=== PATIENT | female | born 1985 | race Two or more races ===

== ENCOUNTER 2019-06-15 07:48 | Emergency (ER) | payer SELFPAY ==
[~2019-06-15] VITALS: Ht 157.5 cm; Wt 68.0 kg
[2019-06-15 08:12] VITALS: BP 130/63
--- NOTE | 2019-06-15 09:25 | RAD ---
EXAM: Head CT without contrast. HISTORY: Left-sided numbness. TECHNIQUE: Computed tomographic images of the head were obtained without contrast. *One or more of the following individualized dose reduction techniques were utilized for this examination: 1. Automated exposure control. 2. Adjustment of the mA and/or kV according to patient size. 3. Use of iterative reconstruction technique. COMPARISON: None. FINDINGS: There is no acute or subacute extra-axial or intraparenchymal hemorrhage. There is no mass effect or midline shift. There is no hydrocephalus. The mata-white matter differentiation pattern is intact. The visualized portions of the orbits, paranasal sinuses and mastoid air cells are unremarkable. No suspicious calvarial lesion is seen. IMPRESSION: No acute intracranial findings. Electronically signed by: Doris Moon MD (06/15/2019 9:22 AM) [facility]
--- NOTE | 2019-06-15 09:26 | RAD ---
PA and lateral chest. HISTORY: Cough PA and lateral views were taken of the chest. Lungs are free of infiltrates. Heart is normal in size. There is no effusion. IMPRESSION: 1. No acute chest disease. Electronically signed by: Warner Quevedo MD (06/15/2019 9:23 AM) [id number]
--- NOTE | 2019-06-15 09:43 | PHYS DOC ---
Past Medical History Past Medical History: No Pertinent History Past Surgical History: No Surgical History Smoking Status: Current Every Day Smoker Additional Information: 3 CIGS/DAY Alcohol Use: Occasionally Additional Information: "A PINT A WEEK" Social History Narrative: LAST USED 3 DAYS AGO Adult General Chief Complaint Chief Complaint: Neck Pain HPI HPI Patient is a 33 year old female who presented to ER today for evaluation of nonproductive cough for 3 to 4 days. Patient denies any fever, no nausea vomiting. Patient denies any recent exposure to anybody who had tested positive for coronavirus. Patient denies any recent travel anywhere. Patient denies any chest pain or any trouble breathing. Patient denies any slow speech or headache. Patient said that yesterday after she waking up from sleep she had some numbness and tingling sensation on the left side of her body but it went aw ay. Patient denies any weakness or numbness this morning, no headache, no slurred speech, Review of Systems Review of Systems Constitutional: Denies fever or chills [] Eyes: Denies change in visual acuity, redness, or eye pain [] HENT: Denies nasal congestion or sore throat [] Respiratory: Positivefor cough , no shortness of breath [] Cardiovascular: No additional information not addressed in HPI [] GI: Denies abdominal pain, nausea, vomiting, bloody stools or diarrhea [] : Denies dysuria or hematuria [] Musculoskeletal: Denies back pain or joint pain [] Integument: Denies rash or skin lesions [] Neurologic: Denies headache, focal weakness or sensory changes [] Endocrine: Denies polyuria or polydipsia [] All other systems were reviewed and found to be within normal limits, except as documented in this note. Allergies Allergies Allergies Coded Allergies Type Severity Reaction Last Updated Verified No Known Drug Allergies 06/15/19 No Physical Exam Physical Exam Constitutional: Well developed, well nourished, no acute distress, non-toxic appearance. [] HENT: Normocephalic, atraumatic, bilateral external ears normal, oropharynx moist, no oral exudates, nose normal. [] Eyes: PERRLA, EOMI, conjunctiva normal, no discharge. [] Neck: Normal range of motion, no tenderness, supple, no stridor. [] Cardiovascular:Heart rate regular rhythm, no murmur [] Lungs & Thorax: Bilateral breath sounds clear to auscultation [] Abdomen: Bowel sounds normal, soft, no tenderness, no masses, no pulsatile masses. [] Skin: Warm, dry, no erythema, no rash. [] Back: No tenderness, no CVA tenderness. [] Extremities: No tenderness, no cyanosis, no clubbing, ROM intact, no edema. [] Neurologic: Alert and oriented X 3, normal motor function, normal sensory function, no focal deficits noted. [] Psychologic: Affect normal, judgement normal, mood normal. [] Current Patient Data Vital Signs Vital Signs Date Time Temp Pulse Resp B/P (MAP) Pulse Ox O2 Delivery O2 Flow Rate FiO2 06/15/19 08:12 98.7 99 18 130/63 (85) 99 Room Air 98.7 EKG EKG [] Radiology/Procedures Radiology/Procedures [][address] [address] IMAGING REPORT Signed PATIENT: KISHAN WILKERSON ACCOUNT: [id number] : 1985 LOCATION: ER AGE: 33 SEX: F EXAM STATUS: REG ER ORD. PHYSICIAN: AUGUSTO CONNOR DO REASON: cough PROCEDURE: CHEST PA & LATERAL PA and lateral chest. HISTORY: Cough PA and lateral views were taken of the chest. Lungs are free of infiltrates. Heart is normal in size. There is no effusion. IMPRESSION: 1. No acute chest disease. Electronically signed by: Warner Quevedo MD (06/15/2019 9:23 AM) [id number] DICTATED and SIGNED BY: WARNER QUEVEDO MD DATE: 06/15/19 [id number] [place], [place] [id number] IMAGING REPORT Signed PATIENT: KISHAN WILKERSON ACCOUNT: [id number] : 1985 LOCATION: ER AGE: 33 SEX: F EXAM STATUS: REG ER ORD. PHYSICIAN: AUGUSTO CONNOR DO REASON: left side numbness PROCEDURE: CT HEAD WO CONTRAST EXAM: Head CT without contrast. HISTORY: Left-sided numbness. TECHNIQUE: Computed tomographic images of the head were obtained without contrast. *One or more of the following individualized dose reduction techniques were utilized for this examination: 1. Automated exposure control. 2. Adjustment of the mA and/or kV according to patient size. 3. Use of iterative reconstruction technique. COMPARISON: None. FINDINGS: There is no acute or subacute extra-axial or intraparenchymal hemorrhage. There is no mass effect or midline shift. There is no hydrocephalus. The mata-white matter differentiation pattern is intact. The visualized portions of the orbits, paranasal sinuses and mastoid air cells are unremarkable. No suspicious calvarial lesion is seen. IMPRESSION: No acute intracranial findings. Electronically signed by: Doris Harper MD (06/15/2019 9:22 AM) [facility] DICTATED and SIGNED BY: DORIS HARPER MD DATE: 06/15/19921 Course & Med Decision Making Course & Med Decision Making Pertinent Labs and Imaging studies reviewed. (See chart for details) [] Dragon Disclaimer Dragon Disclaimer This electronic medical record was generated, in whole or in part, using a voice recognition dictation system. Departure Departure Impression: Primary Impression: Paresthesia Additional Impression: Cough Disposition: 01 HOME, SELF-CARE Condition: STABLE Referrals: NO PCP (PCP) FOLLOW UP WITH YOUR DOCTOR NEEDED Patient Instructions: Cough, Adult, Paresthesia Additional Instructions: Thank you for visiting our Emergency Department. We appreciate you trusting us with your care. If any additional problems come up don't hesitate to return to visit us. Please follow up with your primary care provider so they can plan additional care if needed and know about the problem that you had. If symptoms worsen come back to the Emergency Department. Any concerning symptoms that start such as chest pain, shortness of air, weakness or numbness on one side of the body, running high fevers or any other concerning symptoms return to the ER. COVID-19 Patient Risks: Age 65 or older: No Sign of co-morbidity: No Exp to person + for COVID: No Exp to PUI: No Travel from affected area: No Lower respiratory symptoms: Yes Fever: No Other: No PPE Use: Full PPE with N95 mask or PAPR: Yes (N95 MASK) Problem Qualifiers AUGUSTO CONNOR DO Jun 15, 2019 09:43
== END 2019-06-15 10:07 | disposition home or self-care (01) ==
LOC: ER 07:48
DX: R20.2 Paresthesia of skin (principal); R05 Cough; F17.210 Nicotine dependence, cigarettes, uncomplicated
CPT/HCPCS: 70450; 71046; 99284